=== PATIENT | female | born 1990 | race Caucasian/White ===

== ENCOUNTER 2019-09-05 17:35 | Emergency (ER) | payer OTHER ==
[~2019-09-05] VITALS: Ht 157.5 cm; Wt 67.7 kg
[2019-09-05 17:54] VITALS: BP 126/78
--- NOTE | 2019-09-05 20:45 | NUR ---
BATCH WEIGHER: DC EDUCATION PROVIDED, PT DEMONSTRATES UNDERSTANDNG. PT AMBULATED STEAIDLY TO DC WITH RN
== END 2019-09-05 20:53 | disposition home or self-care (01) ==
LOC: ED 20:45
DX: S69.92XA Unspecified injury of left wrist, hand and finger(s), initial encounter (principal); X58.XXXA Exposure to other specified factors, initial encounter; Y93.89 Activity, other specified; Y92.89 Other specified places as the place of occurrence of the external cause; Y99.8 Other external cause status
CPT/HCPCS: 93005; 99283